=== PATIENT | female | born 1960 | race Caucasian/White ===

== ENCOUNTER 2018-07-03 07:37 | Day surgery (SDC) | payer BC, OTHER ==
[2018-07-02 13:49] VITALS: BMI 36.4
[2018-07-03] MEDS ORDERED: Oxymetazoline HCl 0.05% ( 15 ML ) ONE ×2 (09:00→10:27)
[2018-07-03] MEDS ORDERED: Bacitracin Zinc Ointment 30 gm TUBE ONE (10:27)
[2018-07-03] MEDS ORDERED: Lidocaine 1% w/Epinephrine 1:100K 30 ML VIAL ONE (10:27)
[2018-07-03] MEDS ORDERED: Fentanyl 100 MCG/2 ML VIAL ONE ×3 (10:30→12:15)
[2018-07-03] MEDS ORDERED: Midazolam HCl 2 mg/2 ml Vial ONE (10:30)
[2018-07-03] MEDS ORDERED: Ondansetron HCl/PF 4 MG/2 ML Vial IVP PRN (12:01)
[2018-07-03] MEDS ORDERED: Promethazine HCl 25 MG/ML VIAL IM/IV PRN (12:01)
[2018-07-03] MEDS ORDERED: Morphine Sulfate 2 MG/ML SYRINGE SLOW IVP PRN (12:01)
[2018-07-03] MEDS ORDERED: HYDROcodone/Acetaminophen 5/325 mg Tablet ONE (13:17)
[2018-07-03] MEDS ORDERED: PROPOFOL 200 MG/20 ML VIAL ONE (15:39)
[2018-07-03] MEDS ORDERED: Lidocaine 1% PF 5 ML VIAL ONE (15:39)
[2018-07-03] MEDS ORDERED: Ondansetron HCl/PF 4 MG/2 ML Vial ONE (15:39)
[2018-07-03] MEDS ORDERED: PHENYLEPHRINE-NS 100 MCG/ML 10 ML SYRINGE ONE (15:39)
[2018-07-03] MEDS ORDERED: Dexamethasone 20 MG/5 ML VIAL ONE (15:39)
--- NOTE | 2018-07-04 10:39 | OP ---
DATE OF PROCEDURE: 07/03/2018 PREOPERATIVE DIAGNOSES: 1. Chronic rhinosinusitis. 2. Nasal septal deviation. 3. Nasal septal perforation. 4. Bilateral inferior turbinate hypertrophy. POSTOPERATIVE DIAGNOSES: 1. Chronic rhinosinusitis. 2. Nasal septal deviation. 3. Nasal septal perforation. 4. Bilateral inferior turbinate hypertrophy. PROCEDURES PERFORMED: 1. Bilateral endoscopic sinus surgery, total ethmoidectomies. 2. Bilateral endoscopic sinus surgery, maxillary antrostomies. 3. Nasal septoplasty with repair of septal perforation. SURGEON: Eriberto Butts M.D. ESTIMATED BLOOD LOSS: 20 mL COMPLICATIONS: None. ANESTHESIA: GETA. DESCRIPTION OF PROCEDURE: The patient was taken to the operating room and placed supine on the table . General endotracheal anesthesia was obtained by the Anesthesia staff. Tube was secured in the lef t lower lip. The patient was then placed in the beach chair position. Afrin pledgets were placed in the nasal cavity as the patient was prepped and draped for standard nasal surgery. Following this, the 0 degree scope was advanced in the nasal cavity. The inferior portion of the septum was fairly m idline. There was a large perforation approximately 2.5 cm in diameter with thick crusting and blood y scabs present. Injections of the nasal septum and the inferior turbinates and middle turbinates an d lateral nasal wall were performed with 1% lidocaine 1:10,000 epinephrine. Following this, a bundler iorly based Iantha incision was made above the septal perforation over the remnant cartilage. Submu coperichondrial flaps were elevated bilaterally over the remnant portions of the deviated nasal septu m and the nasal septal bone. The straight pieces of cartilage that were deviated off to the right we re trimmed appropriately and then were repositioned into a pocket that was created after t he mucoperichondrial flaps of the nasal septal perforation. These were stitched into place using a c hromic gut mattress type stitch and this corrected the remnant nasal septal deviation as well as repa ired the large septal perforation. Following this, the 0 degree endoscope was advanced into the midd le meatus. The middle turbinates were gently medialized using the Wilber elevator bilaterally. Using the ball-ended probe, the uncinate process was anteriorly fractured and then was removed bilaterally using the straight microdebrider and upbiting Blakesley forceps. Following this, the ball-ended pro be was used to identify and widen the maxillary sinus ostia bilaterally using a 0 degree microdebride r and a straight Blakesley forceps. Following this, the ethmoidal bulla was identified bilaterally a nd was punctured on its medial and inferior aspect and was punctured using the microdebrider. The et hmoidal bulla was then removed using the straight microdebrider and the upbiting Blakesley forceps. Following this, the grand lamella was identified bilaterally and was punctured into the posterior eth moidal cells. Working from posterior to anterior, the ethmoidal cells were opened in a mucosal-spari ng technique. Following this, the inferior turbinates were then punctured on their anterior and infe rior aspect with the submucosal microdebrider and submucosal resection was performed of the anterior and inferior portions of the inferior turbinates bilaterally. Following this, the nasal cavity was i rrigated. Mirapex were placed within the middle meatus and Lacey splints were placed on the nasal se ptum and were secured. The patient tolerated the procedure well.
== END 2018-07-03 14:51 | disposition home or self-care (01) ==
LOC: SDC 07:37
PROVIDERS: ATTEND Otolaryngology Plastic Surgery within the Head & Neck
PROC: 09TV8ZZ Resection of Left Ethmoid Sinus, Via Natural or Artificial Opening Endoscopic (ICD-10-PCS; principal; 2018-07-03)
PROC: 09TU8ZZ Resection of Right Ethmoid Sinus, Via Natural or Artificial Opening Endoscopic (ICD-10-PCS; principal; 2018-07-03)
PROC: 09QM0ZZ Repair Nasal Septum, Open Approach (ICD-10-PCS; principal; 2018-07-03)
DX: J32.8 Other chronic sinusitis (principal); J34.2 Deviated nasal septum; J34.3 Hypertrophy of nasal turbinates
CPT/HCPCS: 85014; 96374; J1100; J2001; J2250; J2405; J2704; J3010